=== PATIENT | female | born 1995 | race American Indian/Alaskan Native ===

== ENCOUNTER 2018-11-26 12:32 | Emergency (ER) | payer MEDICAID ==
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
[2018-11-26] MEDS ORDERED: ACETAMINOPHEN W/CODEINE 300-30 MG TAB PO ONE (15:34)
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
[2018-11-26 18:02] VITALS: BP 124/81
== END 2018-11-26 18:00 | disposition home or self-care (01) ==
LOC: ED 12:32
DX: S01.112A Laceration without foreign body of left eyelid and periocular area, initial encounter (principal); Z79.899 Other long term (current) drug therapy; Z79.1 Long term (current) use of non-steroidal anti-inflammatories (NSAID); V89.2XXA Person injured in unspecified motor-vehicle accident, traffic, initial encounter; Y93.89 Activity, other specified; Y92.89 Other specified places as the place of occurrence of the external cause; Y99.8 Other external cause status
CPT/HCPCS: 82962; 99283